=== PATIENT | male | born 1950 | race Caucasian/White ===

== ENCOUNTER 2017-06-08 06:07 | Inpatient (IN) | payer MEDICARE, BC ==
[~2017-06-08 06:07] MED LIST: Lactated Ringers 1,000 ML IV SCH; Lidocaine 1%/Sod Bicarbonate in NS 8.4% 1 ML Syringe IV PRN; Sodium Chloride 0.9% 10 ML Syringe FLUSH PRN
[2017-06-08] MEDS ORDERED: ceFAZolin 1 GM Vial ONE ×3 (06:10→07:22)
[2017-06-08] MEDS ORDERED: Iodine/Sodium Iodide 2% Tincture 30 ML Bottle ONE (06:11)
[2017-06-08] MEDS ORDERED: Ondansetron 4 MG/2 ML SDV IVPUSH PRN (06:41)
[2017-06-08] MEDS ORDERED: Naloxone 0.4 MG/ML SDV IVPUSH PRN (06:41)
[2017-06-08] MEDS ORDERED: Sennosides 8.6 MG Tab PO PRN (06:41)
[2017-06-08] MEDS ORDERED: Morphine 2 MG/ML Syringe IVPUSH PRN (06:41)
[2017-06-08] MEDS ORDERED: Bisacodyl 5 MG Tab PO PRN (06:41)
[2017-06-08] MEDS ORDERED: diphenhydrAMINE 50 MG/ML SDV IVPUSH PRN ×2 (06:41→09:28)
[2017-06-08] MEDS ORDERED: Magnesium Hydroxide 400 MG/5 ML Susp 30 ML Cup PO PRN (06:41)
[2017-06-08] MEDS ORDERED: ceFAZolin 2 GM in Premix Bag 1 BAG IV SCH (06:45)
[2017-06-08] MEDS ORDERED: Cyclobenzaprine 10 MG Tab PO PRN (06:49)
--- NOTE | 2017-06-08 06:54 | PCM.PREANE ---
Preanesthetic Assessment - Anesthesia/Transfusion/Family Hx Anesthesia History: Prior Anesthesia Without Reaction Family History of Anesthesia Reaction: No Transfusion History: No Prior Transfusion(s) - Review of Systems General: No Symptoms Pulmonary: No Symptoms Cardiovascular: No Symptoms Gastrointestinal: No Symptoms Neurological: Numbness (right hand) Other: Reports: None - Physical Assessment NPO Status Date: 06/07/17 NPO Status Time: 00:00 Pulse: 65 O2 Sat by Pulse Oximetry: 95 Respiratory Rate: 16 Blood Pressure: 149/102 Temperature: 36.6 C Height: 1.88 m Weight: 120.656 kg ASA Class: 3 Mental Status: Alert & Oriented x3 Airway Class: Mallampati = 1 Dentition: Reports: Normal Dentition, [place](s), Missing Tooth/Teeth Thyro-Mental Finger Breadths: 3 Mouth Opening Finger Breadths: 3 ROM/Head Extension: Full Lungs: Clear to Auscultation, Normal Respiratory Effort Cardiovascular: Regular Rhythm, Irregular Rhythm - Lab Values: on chart - Imaging/EKG Impressions: on chart - Allergies Allergies/Adverse Reactions: Allergies Allergy/AdvReac Type Severity Reaction Status Date / Time No Known Allergies Allergy Verified 06/07/17 13:35 - Blood Blood Available: Yes Product(s) Available: PRBC - Anesthesia Plan Pre-Op Medication Ordered: Beta Isaac Beta Isaac: Metoprolol Med Last Dose Date: 06/08/17 Med Last Dose Time: 03:30 - Acknowledgements Anesthesia Type Planned: Spinal Pt an Appropriate Candidate for the Planned Anesthesia: Yes Alternatives and Risks of Anesthesia Discussed w Pt/Guardian: Yes Pt/Guardian Understands and Agrees with Anesthesia Plan: Yes PreAnesthesia Questionnaire HEENT History: Reports: Hard of Hearing, Impaired Vision Cardiovascular History: Reports: Afib, CAD, High Cholesterol, Other (See Below) Other Cardiovascular History: heart catheterization, abnormality of thoracic aorta Respiratory History: Reports: None Gastrointestinal History: Reports: GERD Genitourinary History: Reports: None OFFICE BOOKKEEPER History: Reports: None Musculoskeletal History: Reports: Osteoarthritis, Other (See Below) Other Musculoskeletal History: hand weakness Neurological History: Reports: None Psychiatric History: Reports: None Endocrine/Metabolic History: Reports: None Hematologic History: Reports: None Immunologic History: Reports: None Oncologic (Cancer) History: Reports: None Dermatologic History: Reports: Other (See Below) Other Dermatologic History: foreign body to left hand, actinic keratosis - Past Surgical History Head Surgeries/Procedures: Reports: None HEENT Surgical History: Reports: None Cardiovascular Surgical History: Reports: None Respiratory Surgical History: Reports: None GI Surgical History: Reports: None Female Surgical History: Reports: None Male Surgical History: Reports: None Endocrine Surgical History: Reports: None Neurological Surgical History: Reports: None Oncologic Surgical History: Reports: None - SUBSTANCE USE Smoking Status *Q: Never Smoker Tobacco Use Within Last Twelve Months: No Second Hand Smoke Exposure: No Days Per Week of Alcohol Use: 0 Number of Drinks Per Day: 0 Total Drinks Per Week: 0 Recreational Drug Use History: No - HOME MEDS Home Medications: Home Meds Fish Oil/[place]-3 Fatty Acids [Fish Oil 1,000 MG] 1,000 mg PO DAILY 06/07/17 [ History] Ibuprofen 200 - 600 mg PO Q6H PRN 06/07/17 [History] Lisinopril/Hydrochlorothiazide [Lisinopril-Hctz 20-25 mg Tab] 1 tab PO DAILY [History] Metoprolol Succinate [Toprol XL] 50 mg PO BID 06/07/17 [History] Potassium Chloride 10 meq PO DAILY 06/07/17 [History] Rivaroxaban [Xarelto] 20 mg PO DAILY 06/07/17 [History] Rosuvastatin [Crestor] 5 mg PO DAILY 06/07/17 [History] Ubidecarenone [Coq-10] 100 mg PO DAILY 06/07/17 [History] - CURRENT (IN HOUSE) MEDS Current Meds: Current Medications Lactated Ringer's (Ringers, Lactated) 1,000 mls @ 125 mls/hr IV ASDIRECTED [facility]ENDA Lidocaine/Sodium Bicarbonate (Buffered Lidocaine 1% In Ns 8.4%) 0.25 ml IV ONETIME PRN PRN Reason: Prior to IV Start Sodium Chloride (Saline Flush) 10 ml FLUSH ASDIRECTED PRN PRN Reason: Keep Vein Open Discontinued Medications Bupivacaine HCl (Marcaine 0.25%) Confirm Administered Dose 30 ml .ROUTE .STK- MED ONE Stop: 06/08/17 06:12 Cefazolin Sodium (Ancef) Confirm Administered Dose 2 gm .ROUTE .STK-MED ONE Stop: 06/08/17 06:11 Iodine (Iodine 2% Mild Tincture) Confirm Administered Dose 30 ml .ROUTE .STK- MED ONE Stop: 06/08/17 06:12 Tranexamic Acid (Cyklokapron) Confirm Administered Dose 1,000 mg .ROUTE .STK- MED ONE Stop: 06/08/17 06:11 Vancomycin HCl (Vancomycin) Confirm Administered Dose 1 gm .ROUTE .STK-MED ONE Stop: 06/08/17 06:11
[2017-06-08] MEDS ORDERED: Ondansetron 4 MG/2 ML SDV ONE (07:21)
[2017-06-08] MEDS ORDERED: fentaNYL 100 MCG/2 ML SDV ONE (07:21)
[2017-06-08] MEDS ORDERED: Propofol 200 MG/20 ML SDV ONE ×4 (07:21→09:21)
[2017-06-08] MEDS ORDERED: Midazolam 1 MG/ML 2 ML SDV ONE (07:22)
[2017-06-08] MEDS ORDERED: Lidocaine 1% 4 ML ONE (07:22)
[2017-06-08] MEDS ORDERED: Morphine PF 10 MG/10 ML SDV ONE (07:37)
[2017-06-08] MEDS ORDERED: Labetalol 100 MG/20 ML MDV ONE (07:59)
[2017-06-08] MEDS ORDERED: Phenylephrine/Normal Saline 100 MCG/ML 10 ML Syringe ONE (08:08)
[2017-06-08] MEDS ORDERED: Lactated Ringers 1,000 ML ONE ×2 (08:19→09:22)
[2017-06-08] MEDS: Morphine 8 MG, EPINEPHrine 0.3 MG, Cefuroxime 750 MG, Ketorolac 30 MG, Sodium Chloride ... ONE ×10 (08:46→08:50)
[2017-06-08] MEDS: Bupivacaine 0.25% 30 ML SDV ONE ×2 (08:46→08:51)
[2017-06-08] MEDS: Vancomycin 1 GM SDV ONE ×2 (08:47→08:53)
[2017-06-08] MEDS ORDERED: fentaNYL 100 MCG/2 ML SDV IVPUSH PRN (09:28)
--- NOTE | 2017-06-08 09:29 | PCM.POSTAN ---
POST ANESTHESIA ASSESSMENT - MENTAL STATUS Mental Status: Alert, Oriented - VITAL SIGNS Pulse Rate: 66 SaO2: 91 Resp Rate: 11 Blood Pressure: 93/62 Temperature: 36.4 C - RESPIRATORY Respiratory Status: Respiratory Rate WNL, Airway Patent, O2 Saturation Stable, Supplemental Oxygen - CARDIOVASCULAR CV Status: Pulse Rate WNL - GASTROINTESTINAL GI Status: No Symptoms - PAIN Pain Score: 0 - POST OP HYDRATION Hydration Status: Adequate & Stable - OBSERVATIONS Free Text/Narrative:: no anesthetic complications noted
--- NOTE | 2017-06-08 13:22 | PCM.CONS ---
H&P History of Present Illness - General Date of Service: 06/08/17 Admit Problem/Dx: Admission Diagnosis/Problem Admission Diagnosis/Problem Osteoarthritis of hip Harry is a 66yo male s/p Lt JOANNE with Alexander Velez this morning. He is doing well thus far, no nausea. [place] is draining well. Pain is under control at this time , he did have a spinal. Preop H&P reviewed and was done by PCP, Dr Del Real in [place]. Preop hgb was 14.5 VSS. PMH is significant for afib, on xarelto, CAD, HTN, HLD, GERD and OA. Patient is Full Code status Source of Information: Patient, Old Records, Other (anesthesia notes) History Limitations: Reports: No Limitations Left Hip Pain Score (Numeric/FACES): 0 - Related Data Allergies/Adverse Reactions: Allergies Allergy/AdvReac Type Severity Reaction Status Date / Time No Known Allergies Allergy Verified 06/07/17 13:35 Home Medications: Home Meds Fish Oil/[place]-3 Fatty Acids [Fish Oil 1,000 MG] 1,000 mg PO DAILY 06/07/17 [ History] Ibuprofen 200 - 600 mg PO Q6H PRN 06/07/17 [History] Lisinopril/Hydrochlorothiazide [Lisinopril-Hctz 20-25 mg Tab] 1 tab PO DAILY [History] Metoprolol Succinate [Toprol XL] 50 mg PO BID 06/07/17 [History] Potassium Chloride 10 meq PO DAILY 06/07/17 [History] Rivaroxaban [Xarelto] 20 mg PO DAILY 06/07/17 [History] Rosuvastatin [Crestor] 5 mg PO DAILY 06/07/17 [History] Ubidecarenone [Coq-10] 100 mg PO DAILY 06/07/17 [History] Past Medical History HEENT History: Reports: Hard of Hearing, Impaired Vision Cardiovascular History: Reports: Afib, CAD, High Cholesterol, Other (See Below) Other Cardiovascular History: heart catheterization, abnormality of thoracic aorta Respiratory History: Reports: None Gastrointestinal History: Reports: None Genitourinary History: Reports: None DIRECTOR ADVANCED History: Reports: None Musculoskeletal History: Reports: Osteoarthritis, Other (See Below) Other Musculoskeletal History: hand weakness Neurological History: Reports: None Psychiatric History: Reports: None Endocrine/Metabolic History: Reports: None Hematologic History: Reports: None Immunologic History: Reports: None Oncologic (Cancer) History: Reports: None Dermatologic History: Reports: Other (See Below) Other Dermatologic History: foreign body to left hand, actinic keratosis - Infectious Disease History Infectious Disease History: Reports: Chicken Pox, Measles, Other (See Below) Other Infectious Disease History: as a child - Past Surgical History Head Surgeries/Procedures: Reports: None HEENT Surgical History: Reports: None Cardiovascular Surgical History: Reports: None Respiratory Surgical History: Reports: None GI Surgical History: Reports: None Male Surgical History: Reports: None Endocrine Surgical History: Reports: None Neurological Surgical History: Reports: None Musculoskeletal Surgical History: Reports: None Oncologic Surgical History: Reports: None Dermatological Surgical History: Reports: None Social & Family History - Family History Family Medical History: Noncontributory Other Dermatologic Family History: pt declines to answer the family hx - Tobacco Use Smoking Status *Q: Never Smoker Second Hand Smoke Exposure: No - Caffeine Use Caffeine Use: Reports: Soda - Alcohol Use Days Per Week of Alcohol Use: 0 Number of Drinks Per Day: 0 Total Drinks Per Week: 0 - Recreational Drug Use Recreational Drug Use: No H&P Review of Systems - Review of Systems: Review Of Systems: See Below General: Reports: No Symptoms. Denies: Fever HEENT: Reports: No Symptoms Pulmonary: Reports: No Symptoms. Denies: Shortness of Breath, Cough Cardiovascular: Reports: No Symptoms. Denies: Chest Pain, Palpitations Gastrointestinal: Reports: No Symptoms. Denies: Abdominal Pain, Nausea Genitourinary: Reports: No Symptoms, Other ([place]) Musculoskeletal: Reports: Leg Pain (lt knee/leg) Skin: Reports: No Symptoms Psychiatric: Reports: No Symptoms Neurological: Reports: No Symptoms Exam - Exam Exam: See Below - Vital Signs Vital Signs: Last Vital Signs Temp 97.3 F 06/08/17 12:30 Pulse 88 06/08/17 12:30 Resp 16 06/08/17 12:30 BP 118/81 06/08/17 12:30 Pulse Ox 96 06/08/17 12:30 Weight: 270 lb - Exam Quality Assessment: Supplemental Oxygen (1L/NC), Urinary Catheter, DVT Prophylaxis General: Alert, Oriented, Cooperative HEENT: Conjunctiva Clear, EOMI, Hearing Intact, Mucosa Moist & [place], Pupils Equal Neck: Supple Lungs: Clear to Auscultation, Normal Respiratory Effort Cardiovascular: Irregular Rhythm GI/Abdominal Exam: Normal Bowel Sounds, Soft, Non-Tender (Male) Exam: Deferred Rectal (Males) Exam: Deferred Extremities: Other (edith hose to rt LE, dressing to lt hip CDI, hip is soft; SCD' s bilat. CMS is + and = bilat to LE.) Peripheral Pulses: 2+: Dorsalis Pedis (L), Dorsalis Pedis (R) Neurological: Cranial Nerves Intact Neuro Extensive - Mental Status: Alert, Oriented x3, Normal Mood/Affect, Normal Cognition, Memory Intact Psychiatric: Alert, Normal Affect, Normal Mood - Patient Data Lab Results Last 24 hrs: Laboratory Results - last 24 hr 06/08/17 06/08/17 Range/Units 06:30 06:57 PT 10.9 (8.0-13.0) SECONDS INR 1.00 APTT 27 (22-36) SECONDS Blood Type A POSITIVE Gel Antibody Screen Negative Consult PN Assessment/Plan POD#: 0 (1) S/P total hip arthroplasty SNOMED Code(s): 153838395266 Code(s): Z96.649 - PRESENCE OF UNSPECIFIED ARTIFICIAL HIP JOINT Priority: High Current Visit: Yes Qualifiers: Laterality: left Qualified Code(s): Z96.642 - Presence of left artificial hip joint (2) Osteoarthritis SNOMED Code(s): 336579142 Code(s): M19.90 - UNSPECIFIED OSTEOARTHRITIS, UNSPECIFIED SITE Priority: High Current Visit: Yes Qualifiers: Osteoarthritis location: hip Osteoarthritis type: primary Laterality: left Qualified Code(s): M16.12 - Unilateral primary osteoarthritis, left hip (3) Afib SNOMED Code(s): 93155832 Code(s): I48.91 - UNSPECIFIED ATRIAL FIBRILLATION Priority: Medium Current Visit: Yes Qualifiers: Atrial fibrillation type: chronic Qualified Code(s): I48.2 - Chronic atrial fibrillation (4) HTN (hypertension) SNOMED Code(s): 65986033 Code(s): I10 - ESSENTIAL (PRIMARY) HYPERTENSION Priority: Medium Current Visit: Yes Qualifiers: Hypertension type: essential hypertension Qualified Code(s): I10 - Essential (primary) hypertension (5) HLD (hyperlipidemia) SNOMED Code(s): 40179959 Code(s): E78.5 - HYPERLIPIDEMIA, UNSPECIFIED Priority: Medium Current Visit: No Qualifiers: Hyperlipidemia type: unspecified Qualified Code(s): E78.5 - Hyperlipidemia , unspecified (6) GERD (gastroesophageal reflux disease) SNOMED Code(s): 794766722 Code(s): K21.9 - GASTRO-ESOPHAGEAL REFLUX DISEASE WITHOUT ESOPHAGITIS Priority: Medium Current Visit: Yes Qualifiers: Esophagitis presence: esophagitis presence not specified Qualified Code(s) : K21.9 - Gastro-esophageal reflux disease without esophagitis (7) CAD (coronary artery disease) SNOMED Code(s): 17248633 Code(s): I25.10 - ATHSCL HEART DISEASE OF [place] CORONARY ARTERY W/O ANG PCTRS Priority: Medium Current Visit: No Qualifiers: Coronary Disease-Associated Artery/Lesion type: unspecified vessel or lesion type [place] vs. transplanted heart: [place] heart Associated angina: without angina Qualified Code(s): I25.10 - Atherosclerotic heart disease of [place] coronary artery without angina pectoris Problem List Initiated/Reviewed/Updated: Yes Plan: I/P: S/P Lt JOANNE with Dr. Velez, POD #0 -Pain management and DVT prophylax per Ortho/Primary team -PT/OT -RT/IS -Preop hgb 14.5, follow am labs -VSS- on 1L O2/NC now, maintain sats >90%, wean when able Afib- chronic -Restart xarelto tomorrow -Telemetry HTN- cont home meds -Daily labs/BMP Chronic: HLD- cont home meds CAD GERD-GI prophylax OA Other: GI prophylax as above CM/SW- assist with DC planning, plans for DC home with and daughter tomorrow if all goes well. Patient is Full Code status PCP is Dr. Del Real in [place] Thank you for allowing us to participate in this patient's care. Please do not hesitate to contact us if questions/concerns. Requesting Provider: daisy Date Consult Requested: 06/08/17 Reason for Consult: Postoperative medical management Patient History Reviewed: Yes Admission H&P Reviewed: Yes Notified Requestor: Yes Time Spent (in minutes): 35
--- NOTE | 2017-06-08 14:17 | CR ---
Pelvis and left hip: AP view of the pelvis was obtained as well as AP and lateral views of the left hip. Comparison: No previous study. Disc space narrowing and endplate osteophytes partially seen within the lower lumbar spine. Left hip prosthesis is seen which appears to be recently placed. Underlying bony structures are intact. Impression: 1. Satisfactory postoperative radiographic appearance of recently placed left hip prosthesis. 2. Degenerative change is partially seen within the lower lumbar spine. Diagnostic code #2
[2017-06-08] MEDS: ceFAZolin 2 GM in Premix Bag 1 BAG IV SCH ×2 (14:53→23:39)
[2017-06-08] MEDS: ceFAZolin 1 GM in Premix Bag 1 BAG IV SCH ×2 (14:54→23:41)
[2017-06-08] MEDS: Docusate Sodium 100 MG Cap PO SCH (21:03)
[2017-06-08] MEDS: Metoprolol Succinate 50 MG Tab.ER PO SCH (21:04)
[2017-06-08] MEDS: Famotidine 20 MG Tab PO SCH (21:04)
[2017-06-09] MEDS: Acetaminophen/oxyCODONE 325-5 MG Tab PO PRN ×4 (02:16→16:56)
[2017-06-09] MEDS: ceFAZolin 1 GM in Premix Bag 1 BAG IV SCH (06:31)
[2017-06-09] MEDS: ceFAZolin 2 GM in Premix Bag 1 BAG IV SCH (06:31)
--- NOTE | 2017-06-09 07:01 | PCM.PN ---
- General Info Date of Service: 06/09/17 Admission Dx/Problem (Free Text): Admission Diagnosis/Problem Admission Diagnosis/Problem Osteoarthritis of hip Subjective Update: Follow Up Functional Status: Reports: Pain Controlled, Tolerating Diet, Ambulating, Urinating. Denies: New Symptoms - Review of Systems General: Denies: Fever, Weakness, Fatigue, Malaise, Chills HEENT: Reports: No Symptoms Pulmonary: Denies: Shortness of Breath Cardiovascular: Denies: Chest Pain Gastrointestinal: Denies: Abdominal Pain, Nausea, Vomiting Genitourinary: Reports: No Symptoms Musculoskeletal: Reports: No Symptoms Skin: Denies: Cyanosis Neurological: Reports: Gait Disturbance. Denies: Confusion, Difficulty Walking , Weakness Psychiatric: Denies: Depression, Mood Lability, Agitation, Hallucinations, Suicidal Ideation Systems Review Comment:: No overnight or acute issues. He is doing relatively. His pain is controlled. He has no complaints. - Patient Data Vitals - Most Recent: Last Vital Signs Temp 36.7 C 06/09/17 02:36 Pulse 76 06/09/17 02:36 Resp 17 06/09/17 02:36 BP 117/77 06/09/17 02:36 Pulse Ox 98 06/09/17 02:36 Weight - Most Recent: 80.195 kg I&O - Last 24 Hours: Intake & Output 06/08/17 06/09/17 06/09/17 22:59 06:59 14:59 Intake Total 1800 650 Output Total 150 300 Balance 1650 350 Lab Results Last 24 Hours: Laboratory Results - last 24 hr 06/08/17 06/08/17 06/09/17 Range/Units 06:30 06:57 06:08 WBC 6.01 (4.23-9.07) K/mm3 RBC 4.01 L (4.63-6.08) M/mm3 Hgb 12.1 L (13.7-17.5) gm/L Hct 36.8 L (40.1-51.0) % MCV 91.8 (79.0-92.2) fl MCH 30.2 (25.7-32.2) pg MCHC 32.9 (32.2-35.5) g/dl RDW Std Deviation 48.3 H (35.1-43.9) fL Plt Count 122 L (163-337) K/mm3 MPV 9.6 (9.4-12.3) fl PT 10.9 (8.0-13.0) SECONDS INR 1.00 APTT 27 (22-36) SECONDS Blood Type A POSITIVE Gel Antibody Screen Negative Med Orders - Current: Current Medications Bisacodyl (Dulcolax) 5 mg PO DAILY PRN PRN Reason: Constipation Cyclobenzaprine HCl (Flexeril) 10 mg PO TID PRN PRN Reason: Spasms Docusate Sodium (Colace) 100 mg PO BID [facility] Last Admin: 06/08/17 21:03 Dose: 100 mg Famotidine (Pepcid) 20 mg PO BID [facility] Last Admin: 06/08/17 21:04 Dose: 20 mg Hydrochlorothiazide (Hydrochlorothiazide) 25 mg PO DAILY [facility] Cefazolin Sodium/Dextrose 2 gm (/ Premix) 50 mls @ 100 mls/hr IV Q8H [facility] Stop: 06/09/17 07:59 Last Admin: 06/09/17 06:31 Dose: 100 mls/hr Cefazolin Sodium/Dextrose 1 gm (/ Premix) 50 mls @ 100 mls/hr IV Q8H [facility] Stop: 06/09/17 07:59 Last Admin: 06/09/17 06:31 Dose: 100 mls/hr Influenza Virus Vaccine (Fluzone High-Dose ) 1 mcg IM ONETIME ONE Stop: 06/09/17 11:39 Lisinopril (Prinivil) 20 mg PO DAILY [facility] Magnesium Hydroxide (Milk Of Magnesia) 30 ml PO BID PRN PRN Reason: Constipation Metoprolol Succinate (Toprol Xl) 50 mg PO BID [facility] Last Admin: 06/08/17 21:04 Dose: 50 mg Morphine Sulfate (Morphine) 2 mg IVPUSH Q2H PRN PRN Reason: Breakthrough Pain Naloxone HCl (Narcan) 0.1 mg IVPUSH Q5M PRN PRN Reason: Oversedation Ondansetron HCl (Zofran) 4 mg IVPUSH Q6H PRN PRN Reason: Nausea/Vomiting Oxycodone/Acetaminophen (Percocet 325-5 Mg) 1 - 2 tab PO Q4H PRN PRN Reason: Pain Last Admin: 06/09/17 02:16 Dose: 2 tab Ubidecarenone 100mg 1 each PO DAILY [facility] Potassium Chloride (Klor-Con 10) 10 meq PO DAILY [facility] Rivaroxaban (Xarelto) 20 mg PO DAILY [facility] Rosuvastatin Calcium (Crestor) 5 mg PO DAILY [facility] Senna (Senna) 8.6 mg PO BID PRN PRN Reason: Constipation Sodium Chloride (Saline Flush) 10 ml FLUSH ASDIRECTED PRN PRN Reason: Keep Vein Open Discontinued Medications Bupivacaine HCl (Marcaine 0.25%) Confirm Administered Dose 30 ml .ROUTE .STK- MED ONE Stop: 06/08/17 06:12 Last Admin: 06/08/17 08:51 Dose: 30 ml Cefazolin Sodium (Ancef) Confirm Administered Dose 2 gm .ROUTE .STK-MED ONE Stop: 06/08/17 06:11 Last Admin: 06/08/17 08:45 Dose: 2 gm Cefazolin Sodium (Ancef) Confirm Administered Dose 2 gm .ROUTE .STK-MED ONE Stop: 06/08/17 07:23 Cefazolin Sodium (Ancef) Confirm Administered Dose 1 gm .ROUTE .STK-MED ONE Stop: 06/08/17 07:23 Morphine Sulfate 8 mg/Epinephrine HCl 0.3 mg/Cefuroxime Sodium 750 mg/Ketorolac Tromethamine 30 mg/Sodium Chloride 27.9 ml 0 mg .XX ONETIME ONE Stop: 06/08/17 07:46 Last Admin: 06/08/17 08:50 Dose: 788.3 mg Diphenhydramine HCl (Benadryl) 25 mg IVPUSH Q4H PRN PRN Reason: Nausea Diphenhydramine HCl (Benadryl) 25 mg IVPUSH Q6H PRN PRN Reason: Itching Stop: 06/08/17 18:00 Fentanyl (Sublimaze) Confirm Administered Dose 100 mcg .ROUTE .STK-MED ONE Stop: 06/08/17 07:22 Fentanyl (Sublimaze) 50 mcg IVPUSH Q5M PRN PRN Reason: PAIN Stop: 06/08/17 18:00 Fish Oil (Fish Oil) 1 gm PO DAILY [facility] Lactated Ringer's (Ringers, Lactated) 1,000 mls @ 125 mls/hr IV ASDIRECTED [facility] Cefazolin Sodium/Dextrose 2 gm (/ Premix) 50 mls @ 100 mls/hr IV Q8H [facility] Stop: 06/08/17 23:14 Lidocaine HCl (Xylocaine-Mpf 1%) Confirm Administered Dose 4 mls @ as directed .ROUTE .STK-MED ONE Stop: 06/08/17 07:23 Lactated Ringer's (Ringers, Lactated) Confirm Administered Dose 1,000 mls @ as directed .ROUTE .STK-MED ONE Stop: 06/08/17 08:20 Lactated Ringer's (Ringers, Lactated) Confirm Administered Dose 1,000 mls @ as directed .ROUTE .STK-MED ONE Stop: 06/08/17 09:23 Iodine (Iodine 2% Mild Tincture) Confirm Administered Dose 30 ml .ROUTE .STK- MED ONE Stop: 06/08/17 06:12 Last Admin: 06/08/17 08:44 Dose: 18 ml Labetalol HCl (Normodyne) Confirm Administered Dose 100 mg .ROUTE .STK-MED ONE Stop: 06/08/17 08:00 Lidocaine/Sodium Bicarbonate (Buffered Lidocaine 1% In Ns 8.4%) 0.25 ml IV ONETIME PRN PRN Reason: Prior to IV Start Midazolam HCl (Versed 1 Mg/Ml) Confirm Administered Dose 2 mg .ROUTE .STK-MED ONE Stop: 06/08/17 07:23 Morphine Sulfate (Duramorph Pf) Confirm Administered Dose 10 mg .ROUTE .STK-MED ONE Stop: 06/08/17 07:38 Non-Formulary Medication (Lisinopril/Hydrochlorothiazide [Lisinopril-Hctz 20-25 Mg Tab]) 1 tab PO DAILY [facility] Non-Formulary Medication (Rivaroxaban [Xarelto]) 20 mg PO DAILY [facility] Ondansetron HCl (Zofran) Confirm Administered Dose 4 mg .ROUTE .STK-MED ONE Stop: 06/08/17 07:22 Phenylephrine HCl (Phenylephrine In Ns 100 Mcg/Ml) Confirm Administered Dose 1 mg .ROUTE .STK-MED ONE Stop: 06/08/17 08:09 Propofol (Diprivan 20 Ml) Confirm Administered Dose 200 mg .ROUTE .STK-MED ONE Stop: 06/08/17 07:22 Propofol (Diprivan 20 Ml) Confirm Administered Dose 200 mg .ROUTE .STK-MED ONE Stop: 06/08/17 08:14 Propofol (Diprivan 20 Ml) Confirm Administered Dose 200 mg .ROUTE .STK-MED ONE Stop: 06/08/17 08:49 Propofol (Diprivan 20 Ml) Confirm Administered Dose 200 mg .ROUTE .STK-MED ONE Stop: 06/08/17 09:22 Tranexamic Acid (Cyklokapron) Confirm Administered Dose 1,000 mg .ROUTE .STK- MED ONE Stop: 06/08/17 06:11 Last Admin: 06/08/17 08:53 Dose: 1,000 mg Vancomycin HCl (Vancomycin) Confirm Administered Dose 1 gm .ROUTE .STK-MED ONE Stop: 06/08/17 06:11 Last Admin: 06/08/17 08:53 Dose: 1 gm - Exam General: Alert, Oriented, Cooperative, No Acute Distress HEENT: Pupils Equal, Pupils Reactive, EOMI, Mucous Membr. Moist/[place] Neck: Supple, Trachea Midline, No JVD Lungs: Clear to Auscultation, Normal Respiratory Effort Cardiovascular: Regular Rate, Regular Rhythm GI/Abdominal Exam: Normal Bowel Sounds, Soft, Non-Tender, No Organomegaly, No Distention, No Abnormal Bruit, No Mass, Pelvis Stable, Other (Obese) (Male) Exam: Deferred Back Exam: Normal Inspection, Decreased Range of Motion Extremities: Normal Inspection, Normal Range of Motion, Non-Tender, No Pedal Edema, Normal Capillary Refill Peripheral Pulses: 2+: Dorsalis Pedis (L), Dorsalis Pedis (R) Skin: Warm, Dry, Intact Neurological: No New Focal Deficit Psy/Mental Status: Alert, Normal Affect, Normal Mood - Problem List Review Problem List Initiated/Reviewed/Updated: Yes - Plan Plan:: Assessment/Plan: Acute: S/P Left JOANNE with Dr. Velez, POD #1 - Pain management and DVT prophylaxis per Ortho/Primary team - Continue PT/OT/RT and IS as directed - VSS Post Operative Care - Remains hemodynamically stable Chronic: A-fib, HR controlled, on Xarelto HTN- Stable HLD- Stable CAD GERD-GI prophylax OA Other: GI prophylax as above CM/SW- assist with DC planning, plans for DC home with and daughter tomorrow if all goes well. PCP is Dr. Del Real in [place] From the Hospitalist standpoint, patient is doing relatively well. We have no further recommendations but to continue current treatment. We are signing off his care. Please feel free to re-consult us for any questions or concerns. Again , thank you for allowing us to participate in the management of this patient.
[2017-06-09] MEDS: Metoprolol Succinate 50 MG Tab.ER PO SCH (08:20)
[2017-06-09] MEDS: Docusate Sodium 100 MG Cap PO SCH (08:20)
[2017-06-09] MEDS: Famotidine 20 MG Tab PO SCH (08:21)
[2017-06-09] MEDS ORDERED: Lisinopril 20 MG Tab PO SCH (09:00)
[2017-06-09] MEDS ORDERED: Potassium Chloride 10 MEQ Tab.ER PO SCH (09:00)
[2017-06-09] MEDS ORDERED: Hydrochlorothiazide 25 MG Tab PO SCH (09:00)
[2017-06-09] MEDS ORDERED: Rosuvastatin 10 MG Tab PO SCH (09:00)
[2017-06-09] MEDS ORDERED: Rivaroxaban 10 MG Tab PO SCH (09:00)
[2017-06-09] MEDS ORDERED: UBIDECARENONE 100 MG PO SCH (09:00)
[2017-06-09] MEDS ORDERED: Non-Formulary Medication 1 Each (Rivaroxaban [Xarelto] 20 MG) PO SCH (09:00)
[2017-06-09] MEDS ORDERED: Fish Oil/Omega-3 Fatty Acids 1 Gm Cap PO SCH (09:00)
[2017-06-09] MEDS ORDERED: FLU Vacc TS 2017-18 (65yr UP)/PF 180 MCG/0.5 ML Syringe IM ONE ×2 (11:38→16:28)
--- NOTE | 2017-06-09 13:28 | PCM.SURGPN ---
- General Info Date of Service: 06/09/17 POD#: 1 Functional Status: Reports: Pain Controlled, Tolerating Diet, Ambulating, Urinating, Incentive Spirometry, Other (The pt feels prepared for discharge to home.) - Patient Data Vitals - Most Recent: Last Vital Signs Temp 98.4 F 06/09/17 11:44 Pulse 88 06/09/17 11:44 Resp 19 06/09/17 11:44 BP 102/70 06/09/17 11:44 Pulse Ox 95 06/09/17 11:44 Weight - Most Recent: 176 lb 12.8 oz I&O - Last 24 Hours: Intake & Output 06/08/17 06/09/17 06/09/17 22:59 06:59 14:59 Intake Total 1800 650 Output Total 150 300 Balance 1650 350 Lab Results Last 24 Hrs: Laboratory Results - last 24 hr 06/09/17 06/09/17 Range/Units 06:08 06:08 WBC 6.01 (4.23-9.07) K/mm3 RBC 4.01 L (4.63-6.08) M/mm3 Hgb 12.1 L (13.7-17.5) gm/L Hct 36.8 L (40.1-51.0) % MCV 91.8 (79.0-92.2) fl MCH 30.2 (25.7-32.2) pg MCHC 32.9 (32.2-35.5) g/dl RDW Std Deviation 48.3 H (35.1-43.9) fL Plt Count 122 L (163-337) K/mm3 MPV 9.6 (9.4-12.3) fl Sodium 139 (136-145) mEq/L Potassium 4.6 (3.5-5.1) mEq/L Chloride 105 (98-107) mEq/L Carbon Dioxide 28 (21-32) mEq/L Anion Gap 10.6 (5-15) BUN 26 H (7-18) mg/dL Creatinine 1.2 (0.7-1.3) mg/dL Est Cr Clr Drug Dosing 67.76 mL/min Estimated GFR (MDRD) > 60 (>60) mL/min BUN/Creatinine Ratio 21.7 H (14-18) Glucose 115 (80-115) mg/dL Calcium 8.2 L (8.5-10.1) mg/dL Total Bilirubin 0.8 (0.2-1.0) mg/dL AST 17 (15-37) U/L ALT 20 (16-63) U/L Alkaline Phosphatase 75 (46-116) U/L Total Protein 5.9 L (6.4-8.2) g/dl Albumin 2.8 L (3.4-5.0) g/dl Globulin 3.1 gm/dL Albumin/Globulin Ratio 0.9 L (1-2) Med Orders - Current: Current Medications Bisacodyl (Dulcolax) 5 mg PO DAILY PRN PRN Reason: Constipation Cyclobenzaprine HCl (Flexeril) 10 mg PO TID PRN PRN Reason: Spasms Last Admin: 06/09/17 11:07 Dose: 10 mg Docusate Sodium (Colace) 100 mg PO BID [facility] Last Admin: 06/09/17 08:20 Dose: 100 mg Famotidine (Pepcid) 20 mg PO BID [facility] Last Admin: 06/09/17 08:21 Dose: 20 mg Hydrochlorothiazide (Hydrochlorothiazide) 25 mg PO DAILY [facility] Last Admin: 06/09/17 08:21 Dose: 25 mg Lisinopril (Prinivil) 20 mg PO DAILY [facility] Last Admin: 06/09/17 08:18 Dose: 20 mg Magnesium Hydroxide (Milk Of Magnesia) 30 ml PO BID PRN PRN Reason: Constipation Metoprolol Succinate (Toprol Xl) 50 mg PO BID [facility] Last Admin: 06/09/17 08:20 Dose: 50 mg Morphine Sulfate (Morphine) 2 mg IVPUSH Q2H PRN PRN Reason: Breakthrough Pain Naloxone HCl (Narcan) 0.1 mg IVPUSH Q5M PRN PRN Reason: Oversedation Ondansetron HCl (Zofran) 4 mg IVPUSH Q6H PRN PRN Reason: Nausea/Vomiting Oxycodone/Acetaminophen (Percocet 325-5 Mg) 1 - 2 tab PO Q4H PRN PRN Reason: Pain Last Admin: 06/09/17 12:45 Dose: 2 tab Ubidecarenone 100mg 1 each PO DAILY [facility] Last Admin: 06/09/17 08:25 Dose: Not Given Potassium Chloride (Klor-Con 10) 10 meq PO DAILY [facility] Last Admin: 06/09/17 08:18 Dose: 10 meq Rivaroxaban (Xarelto) 20 mg PO DAILY [facility] Last Admin: 06/09/17 08:18 Dose: 20 mg Rosuvastatin Calcium (Crestor) 5 mg PO DAILY [facility] Last Admin: 06/09/17 08:17 Dose: 5 mg Senna (Senna) 8.6 mg PO BID PRN PRN Reason: Constipation Sodium Chloride (Saline Flush) 10 ml FLUSH ASDIRECTED PRN PRN Reason: Keep Vein Open Discontinued Medications Bupivacaine HCl (Marcaine 0.25%) Confirm Administered Dose 30 ml .ROUTE .STK- MED ONE Stop: 06/08/17 06:12 Last Admin: 06/08/17 08:51 Dose: 30 ml Cefazolin Sodium (Ancef) Confirm Administered Dose 2 gm .ROUTE .STK-MED ONE Stop: 06/08/17 06:11 Last Admin: 06/08/17 08:45 Dose: 2 gm Cefazolin Sodium (Ancef) Confirm Administered Dose 2 gm .ROUTE .STK-MED ONE Stop: 06/08/17 07:23 Cefazolin Sodium (Ancef) Confirm Administered Dose 1 gm .ROUTE .STK-MED ONE Stop: 06/08/17 07:23 Morphine Sulfate 8 mg/Epinephrine HCl 0.3 mg/Cefuroxime Sodium 750 mg/Ketorolac Tromethamine 30 mg/Sodium Chloride 27.9 ml 0 mg .XX ONETIME ONE Stop: 06/08/17 07:46 Last Admin: 06/08/17 08:50 Dose: 788.3 mg Diphenhydramine HCl (Benadryl) 25 mg IVPUSH Q4H PRN PRN Reason: Nausea Diphenhydramine HCl (Benadryl) 25 mg IVPUSH Q6H PRN PRN Reason: Itching Stop: 06/08/17 18:00 Fentanyl (Sublimaze) Confirm Administered Dose 100 mcg .ROUTE .STK-MED ONE Stop: 06/08/17 07:22 Fentanyl (Sublimaze) 50 mcg IVPUSH Q5M PRN PRN Reason: PAIN Stop: 06/08/17 18:00 Fish Oil (Fish Oil) 1 gm PO DAILY [facility] Lactated Ringer's (Ringers, Lactated) 1,000 mls @ 125 mls/hr IV ASDIRECTED [facility] Cefazolin Sodium/Dextrose 2 gm (/ Premix) 50 mls @ 100 mls/hr IV Q8H [facility] Stop: 06/08/17 23:14 Lidocaine HCl (Xylocaine-Mpf 1%) Confirm Administered Dose 4 mls @ as directed .ROUTE .STK-MED ONE Stop: 06/08/17 07:23 Lactated Ringer's (Ringers, Lactated) Confirm Administered Dose 1,000 mls @ as directed .ROUTE .STK-MED ONE Stop: 06/08/17 08:20 Cefazolin Sodium/Dextrose 2 gm (/ Premix) 50 mls @ 100 mls/hr IV Q8H [facility] Stop: 06/09/17 07:59 Last Admin: 06/09/17 06:31 Dose: 100 mls/hr Cefazolin Sodium/Dextrose 1 gm (/ Premix) 50 mls @ 100 mls/hr IV Q8H [facility] Stop: 06/09/17 07:59 Last Admin: 06/09/17 06:31 Dose: 100 mls/hr Lactated Ringer's (Ringers, Lactated) Confirm Administered Dose 1,000 mls @ as directed .ROUTE .STK-MED ONE Stop: 06/08/17 09:23 Influenza Virus Vaccine (Fluzone High-Dose ) 1 mcg IM ONETIME ONE Stop: 06/09/17 11:39 Iodine (Iodine 2% Mild Tincture) Confirm Administered Dose 30 ml .ROUTE .STK- MED ONE Stop: 06/08/17 06:12 Last Admin: 06/08/17 08:44 Dose: 18 ml Labetalol HCl (Normodyne) Confirm Administered Dose 100 mg .ROUTE .STK-MED ONE Stop: 06/08/17 08:00 Lidocaine/Sodium Bicarbonate (Buffered Lidocaine 1% In Ns 8.4%) 0.25 ml IV ONETIME PRN PRN Reason: Prior to IV Start Midazolam HCl (Versed 1 Mg/Ml) Confirm Administered Dose 2 mg .ROUTE .STK-MED ONE Stop: 06/08/17 07:23 Morphine Sulfate (Duramorph Pf) Confirm Administered Dose 10 mg .ROUTE .STK-MED ONE Stop: 06/08/17 07:38 Non-Formulary Medication (Lisinopril/Hydrochlorothiazide [Lisinopril-Hctz 20-25 Mg Tab]) 1 tab PO DAILY [facility] Non-Formulary Medication (Rivaroxaban [Xarelto]) 20 mg PO DAILY [facility] Ondansetron HCl (Zofran) Confirm Administered Dose 4 mg .ROUTE .STK-MED ONE Stop: 06/08/17 07:22 Phenylephrine HCl (Phenylephrine In Ns 100 Mcg/Ml) Confirm Administered Dose 1 mg .ROUTE .STK-MED ONE Stop: 06/08/17 08:09 Propofol (Diprivan 20 Ml) Confirm Administered Dose 200 mg .ROUTE .STK-MED ONE Stop: 06/08/17 07:22 Propofol (Diprivan 20 Ml) Confirm Administered Dose 200 mg .ROUTE .STK-MED ONE Stop: 06/08/17 08:14 Propofol (Diprivan 20 Ml) Confirm Administered Dose 200 mg .ROUTE .STK-MED ONE Stop: 06/08/17 08:49 Propofol (Diprivan 20 Ml) Confirm Administered Dose 200 mg .ROUTE .STK-MED ONE Stop: 06/08/17 09:22 Tranexamic Acid (Cyklokapron) Confirm Administered Dose 1,000 mg .ROUTE .STK- MED ONE Stop: 06/08/17 06:11 Last Admin: 06/08/17 08:53 Dose: 1,000 mg Vancomycin HCl (Vancomycin) Confirm Administered Dose 1 gm .ROUTE .STK-MED ONE Stop: 06/08/17 06:11 Last Admin: 06/08/17 08:53 Dose: 1 gm - Exam Wound/Incisions: Dressing Dry and Intact General: Alert, Cooperative, No Acute Distress Lungs: Normal Respiratory Effort Extremities: Other (Left thigh soft, nontender. NVS intact for BLE. Dennys's negative.) - Problem List Review Problem List Initiated/Reviewed/Updated: Yes - My Orders Last 24 Hours: Active Orders 24 hr Category Date Time Status Admission Status [Patient Status] [ADT] Routine ADT 06/08/17 13:29 Active Ready for Discharge [RC] PER UNIT ROUTINE Care 06/09/17 13:26 Ordered Telemetry Monitoring [Cardiac Monitoring] [RC] . Care 06/08/17 15:39 Active DIRECTED Docusate Sodium [Colace] Med 06/08/17 21:00 Active 100 mg PO BID Famotidine [Pepcid] Med 06/08/17 21:00 Active 20 mg PO BID Hydrochlorothiazide Med 06/09/17 09:00 Active 25 mg PO DAILY Lisinopril [Prinivil] Med 06/09/17 09:00 Active 20 mg PO DAILY Metoprolol Succinate [Toprol XL] Med 06/08/17 21:00 Active 50 mg PO BID Patient's Own Medication [Ptom] Med 06/09/17 09:00 Active 1 each PO DAILY Potassium Chloride [Klor-Con 10] Med 06/09/17 09:00 Active 10 meq PO DAILY Rivaroxaban [Xarelto] Med 06/09/17 09:00 Active 20 mg PO DAILY Rosuvastatin [Crestor] Med 06/09/17 09:00 Active 5 mg PO DAILY Medication Orders Bisacodyl (Dulcolax) 5 mg PO DAILY PRN PRN Reason: Constipation Cyclobenzaprine HCl (Flexeril) 10 mg PO TID PRN PRN Reason: Spasms Last Admin: 06/09/17 11:07 Dose: 10 mg Docusate Sodium (Colace) 100 mg PO BID [facility] Last Admin: 06/09/17 08:20 Dose: 100 mg Admin: 06/08/17 21:03 Dose: 100 mg Famotidine (Pepcid) 20 mg PO BID [facility] Last Admin: 06/09/17 08:21 Dose: 20 mg Admin: 06/08/17 21:04 Dose: 20 mg Hydrochlorothiazide (Hydrochlorothiazide) 25 mg PO DAILY [facility] Last Admin: 06/09/17 08:21 Dose: 25 mg Lisinopril (Prinivil) 20 mg PO DAILY [facility] Last Admin: 06/09/17 08:18 Dose: 20 mg Magnesium Hydroxide (Milk Of Magnesia) 30 ml PO BID PRN PRN Reason: Constipation Metoprolol Succinate (Toprol Xl) 50 mg PO BID [facility] Last Admin: 06/09/17 08:20 Dose: 50 mg Admin: 06/08/17 21:04 Dose: 50 mg Morphine Sulfate (Morphine) 2 mg IVPUSH Q2H PRN PRN Reason: Breakthrough Pain Naloxone HCl (Narcan) 0.1 mg IVPUSH Q5M PRN PRN Reason: Oversedation Ondansetron HCl (Zofran) 4 mg IVPUSH Q6H PRN PRN Reason: Nausea/Vomiting Oxycodone/Acetaminophen (Percocet 325-5 Mg) 1 - 2 tab PO Q4H PRN PRN Reason: Pain Last Admin: 06/09/17 12:45 Dose: 2 tab Admin: 06/09/17 07:49 Dose: 2 tab Admin: 06/09/17 02:16 Dose: 2 tab Ubidecarenone 100mg 1 each PO DAILY [facility] Last Admin: 06/09/17 08:25 Dose: Potassium Chloride (Klor-Con 10) 10 meq PO DAILY [facility] Last Admin: 06/09/17 08:18 Dose: 10 meq Rivaroxaban (Xarelto) 20 mg PO DAILY [facility] Last Admin: 06/09/17 08:18 Dose: 20 mg Rosuvastatin Calcium (Crestor) 5 mg PO DAILY [facility] Last Admin: 06/09/17 08:17 Dose: 5 mg Senna (Senna) 8.6 mg PO BID PRN PRN Reason: Constipation Sodium Chloride (Saline Flush) 10 ml FLUSH ASDIRECTED PRN PRN Reason: Keep Vein Open - Assessment Assessment (Free Text/Narrative):: POD#1 - left JOANNE - Plan Plan (Free Text/Narrative):: 1. Xarelto 20mg PO daily as per PCP instruction. Frequent mobility, SCDs. 2. F/U with Dr. Velez in [place] next week. 3. JOANNE precautions. P.T., ex at home. Dr. Velez evaluated the pt today.
--- NOTE | 2017-06-09 13:38 | PCM.DCSUM1 ---
Discharge Summary - Hospital Course Brief History: Harry is a 66 yo male who underwent left JOANNE with Dr. Velez on . The procedure was completed under spinal anesthesia. The pt tolerated the procedure well and was admitted to the Medical-Surgical Unit. Medical management was provided by the Hospitalist service. The pt's Hospital course was uneventful. The pt's Hgb on POD#1 was 12.1. On POD#1, Xarelto 20mg PO daily was initiated for VTE prophylaxis as pt was using this medication daily previously. SCDs and TEDs were also ordered. A Mepilex dressing was placed at the incision site at the time of surgery and remained clean and dry. The pt participated in P.T. and O.T. and progressed well. He followed the JOANNE precautions. The pt was allowed to WBAT and used a FWW for mobility. On POD#1 , the pt was deemed appropriate to discharge to home with his . - Discharge Data Discharge Date: 06/09/17 Discharge Disposition: Home, Self-Care 01 Condition: Good - Patient Summary/Data Consults: Consultations 06/08/17 06:41 Consult to Physician [CONS] Routine OT Evaluation and Treatment [CONS] Routine 06/08/17 06:45 PT Evaluation and Treatment [CONS] Routine - Patient Instructions Diet: Usual Diet as Tolerated Activity: Apply Ice, As Tolerated, Elevate Extremity, Full Weight Bearing Activity, Other: Total hip precautions. Driving: Do Not Drive Showering/Bathing: May Shower Wound/Incision Care: Keep Operative Site/Wound Site Clean and Dry, Do NOT Change Dressing Notify Provider of: Fever, Increased Pain, Swelling and Redness, Drainage, Nausea and/or Vomiting Other/Special Instructions: Please get up and moving around every hour while awake. This helps to prevent blood clots. Please take the Xarelto - blood thinner medication - daily as directed. Please wear the MACARIO hose during the day and you may remove them at night. Please schedule for P.T. Complete the P.T. exercises that were instructed in the Hospital. Follow the total hip arthroplasty precautions. Please use the pain medication and muscle relaxant as needed. The medication may cause drowsiness and/or constipation. You could use a stool softener like docusate sodium or Colace 100mg twice daily and/or a laxative like Miralax daily for constipation. Contact your primary care provider for further instructions if you are constipated. Please schedule an appointment with your primary care provider for 'routine post-op care'. Use the incentive spirometer often. Please place ice to the hip often. Please elevate the limb to decrease swelling. Keep the Mepilex dressing in place until follow-up. Please call [phone] with questions or concerns. - Discharge Plan Prescriptions/Med Rec: Acetaminophen/oxyCODONE [Percocet 325-5 MG] 1 - 2 tab PO Q6H PRN #60 tablet PRN Reason: Pain Cyclobenzaprine [Flexeril] 10 mg PO TID PRN #40 tablet PRN Reason: Spasms Home Medications: Home Meds Lisinopril/Hydrochlorothiazide [Lisinopril-Hctz 20-25 mg Tab] 1 tab PO DAILY [History] Metoprolol Succinate [Toprol XL] 50 mg PO BID 06/07/17 [History] Potassium Chloride 10 meq PO DAILY 06/07/17 [History] Rivaroxaban [Xarelto] 20 mg PO DAILY 06/07/17 [History] Rosuvastatin [Crestor] 5 mg PO DAILY 06/07/17 [History] Ubidecarenone [Coq-10] 100 mg PO DAILY 06/07/17 [History] Acetaminophen/oxyCODONE [Percocet 325-5 MG] 1 - 2 tab PO Q6H PRN #60 tablet [Rx] Bisacodyl [Dulcolax] 5 mg PO DAILY PRN tablet 06/09/17 [Rx] Cyclobenzaprine [Flexeril] 10 mg PO TID PRN #40 tablet 06/09/17 [Rx] Docusate Sodium [Colace] 100 mg PO BID cap 06/09/17 [Rx] Famotidine [Pepcid] 20 mg PO BID tablet 06/09/17 [Rx] Hydrochlorothiazide 25 mg PO DAILY tablet 06/09/17 [Rx] Lisinopril [Prinivil] 20 mg PO DAILY tablet 06/09/17 [Rx] Magnesium Hydroxide [Milk of Magnesia] 30 ml PO BID PRN cup 06/09/17 [Rx] Rivaroxaban [Xarelto] 20 mg PO DAILY tablet 06/09/17 [Rx] Sennosides [Senna] 8.6 mg PO BID PRN tablet 06/09/17 [Rx] Patient Handouts: Rivaroxaban oral tablets, Total Hip Replacement, [id number] , Hip Rehabilitation After Surgery, Total Hip Replacement, Care After, Easy-to- Read Referrals: Luh Richards PA-C [Physician Radio Interference Expert] - (1. Follow-up with in [place] on Wednesday, June 14, 2017 at 2: 00pm. 2. Follow-up with Luh Richards PA-C in [place] on Wednesday, June 21, 2017 at 12:00pm.) Bhargav Del Real MD [Primary Care Provider] - - Patient Data Vitals - Most Recent: Last Vital Signs Temp 98.4 F 06/09/17 11:44 Pulse 88 06/09/17 11:44 Resp 19 06/09/17 11:44 BP 102/70 06/09/17 11:44 Pulse Ox 95 06/09/17 11:44 Weight - Most Recent: 176 lb 12.8 oz I&O - Last 24 hours: Intake & Output 06/08/17 06/09/17 06/09/17 22:59 06:59 14:59 Intake Total 1800 650 Output Total 150 300 Balance 1650 350 Lab Results - Last 24 hrs: Laboratory Results - last 24 hr 06/09/17 06/09/17 Range/Units 06:08 06:08 WBC 6.01 (4.23-9.07) K/mm3 RBC 4.01 L (4.63-6.08) M/mm3 Hgb 12.1 L (13.7-17.5) gm/L Hct 36.8 L (40.1-51.0) % MCV 91.8 (79.0-92.2) fl MCH 30.2 (25.7-32.2) pg MCHC 32.9 (32.2-35.5) g/dl RDW Std Deviation 48.3 H (35.1-43.9) fL Plt Count 122 L (163-337) K/mm3 MPV 9.6 (9.4-12.3) fl Sodium 139 (136-145) mEq/L Potassium 4.6 (3.5-5.1) mEq/L Chloride 105 (98-107) mEq/L Carbon Dioxide 28 (21-32) mEq/L Anion Gap 10.6 (5-15) BUN 26 H (7-18) mg/dL Creatinine 1.2 (0.7-1.3) mg/dL Est Cr Clr Drug Dosing 67.76 mL/min Estimated GFR (MDRD) > 60 (>60) mL/min BUN/Creatinine Ratio 21.7 H (14-18) Glucose 115 (80-115) mg/dL Calcium 8.2 L (8.5-10.1) mg/dL Total Bilirubin 0.8 (0.2-1.0) mg/dL AST 17 (15-37) U/L ALT 20 (16-63) U/L Alkaline Phosphatase 75 (46-116) U/L Total Protein 5.9 L (6.4-8.2) g/dl Albumin 2.8 L (3.4-5.0) g/dl Globulin 3.1 gm/dL Albumin/Globulin Ratio 0.9 L (1-2) Med Orders - Current: Current Medications Bisacodyl (Dulcolax) 5 mg PO DAILY PRN PRN Reason: Constipation Cyclobenzaprine HCl (Flexeril) 10 mg PO TID PRN PRN Reason: Spasms Last Admin: 06/09/17 11:07 Dose: 10 mg Docusate Sodium (Colace) 100 mg PO BID [facility] Last Admin: 06/09/17 08:20 Dose: 100 mg Famotidine (Pepcid) 20 mg PO BID [facility] Last Admin: 06/09/17 08:21 Dose: 20 mg Hydrochlorothiazide (Hydrochlorothiazide) 25 mg PO DAILY [facility] Last Admin: 06/09/17 08:21 Dose: 25 mg Lisinopril (Prinivil) 20 mg PO DAILY [facility] Last Admin: 06/09/17 08:18 Dose: 20 mg Magnesium Hydroxide (Milk Of Magnesia) 30 ml PO BID PRN PRN Reason: Constipation Metoprolol Succinate (Toprol Xl) 50 mg PO BID [facility] Last Admin: 06/09/17 08:20 Dose: 50 mg Morphine Sulfate (Morphine) 2 mg IVPUSH Q2H PRN PRN Reason: Breakthrough Pain Naloxone HCl (Narcan) 0.1 mg IVPUSH Q5M PRN PRN Reason: Oversedation Ondansetron HCl (Zofran) 4 mg IVPUSH Q6H PRN PRN Reason: Nausea/Vomiting Oxycodone/Acetaminophen (Percocet 325-5 Mg) 1 - 2 tab PO Q4H PRN PRN Reason: Pain Last Admin: 06/09/17 12:45 Dose: 2 tab Ubidecarenone 100mg 1 each PO DAILY [facility] Last Admin: 06/09/17 08:25 Dose: Not Given Potassium Chloride (Klor-Con 10) 10 meq PO DAILY [facility] Last Admin: 06/09/17 08:18 Dose: 10 meq Rivaroxaban (Xarelto) 20 mg PO DAILY [facility] Last Admin: 06/09/17 08:18 Dose: 20 mg Rosuvastatin Calcium (Crestor) 5 mg PO DAILY [facility] Last Admin: 06/09/17 08:17 Dose: 5 mg Senna (Senna) 8.6 mg PO BID PRN PRN Reason: Constipation Sodium Chloride (Saline Flush) 10 ml FLUSH ASDIRECTED PRN PRN Reason: Keep Vein Open Discontinued Medications Bupivacaine HCl (Marcaine 0.25%) Confirm Administered Dose 30 ml .ROUTE .STK- MED ONE Stop: 06/08/17 06:12 Last Admin: 06/08/17 08:51 Dose: 30 ml Cefazolin Sodium (Ancef) Confirm Administered Dose 2 gm .ROUTE .STK-MED ONE Stop: 06/08/17 06:11 Last Admin: 06/08/17 08:45 Dose: 2 gm Cefazolin Sodium (Ancef) Confirm Administered Dose 2 gm .ROUTE .STK-MED ONE Stop: 06/08/17 07:23 Cefazolin Sodium (Ancef) Confirm Administered Dose 1 gm .ROUTE .STK-MED ONE Stop: 06/08/17 07:23 Morphine Sulfate 8 mg/Epinephrine HCl 0.3 mg/Cefuroxime Sodium 750 mg/Ketorolac Tromethamine 30 mg/Sodium Chloride 27.9 ml 0 mg .XX ONETIME ONE Stop: 06/08/17 07:46 Last Admin: 06/08/17 08:50 Dose: 788.3 mg Diphenhydramine HCl (Benadryl) 25 mg IVPUSH Q4H PRN PRN Reason: Nausea Diphenhydramine HCl (Benadryl) 25 mg IVPUSH Q6H PRN PRN Reason: Itching Stop: 06/08/17 18:00 Fentanyl (Sublimaze) Confirm Administered Dose 100 mcg .ROUTE .STK-MED ONE Stop: 06/08/17 07:22 Fentanyl (Sublimaze) 50 mcg IVPUSH Q5M PRN PRN Reason: PAIN Stop: 06/08/17 18:00 Fish Oil (Fish Oil) 1 gm PO DAILY [facility] Lactated Ringer's (Ringers, Lactated) 1,000 mls @ 125 mls/hr IV ASDIRECTED [facility] Cefazolin Sodium/Dextrose 2 gm (/ Premix) 50 mls @ 100 mls/hr IV Q8H [facility] Stop: 06/08/17 23:14 Lidocaine HCl (Xylocaine-Mpf 1%) Confirm Administered Dose 4 mls @ as directed .ROUTE .STK-MED ONE Stop: 06/08/17 07:23 Lactated Ringer's (Ringers, Lactated) Confirm Administered Dose 1,000 mls @ as directed .ROUTE .STK-MED ONE Stop: 06/08/17 08:20 Cefazolin Sodium/Dextrose 2 gm (/ Premix) 50 mls @ 100 mls/hr IV Q8H [facility] Stop: 06/09/17 07:59 Last Admin: 06/09/17 06:31 Dose: 100 mls/hr Cefazolin Sodium/Dextrose 1 gm (/ Premix) 50 mls @ 100 mls/hr IV Q8H [facility] Stop: 06/09/17 07:59 Last Admin: 06/09/17 06:31 Dose: 100 mls/hr Lactated Ringer's (Ringers, Lactated) Confirm Administered Dose 1,000 mls @ as directed .ROUTE .STK-MED ONE Stop: 06/08/17 09:23 Influenza Virus Vaccine (Fluzone High-Dose 18) 1 mcg IM ONETIME ONE Stop: 06/09/17 11:39 Iodine (Iodine 2% Mild Tincture) Confirm Administered Dose 30 ml .ROUTE .STK- MED ONE Stop: 06/08/17 06:12 Last Admin: 06/08/17 08:44 Dose: 18 ml Labetalol HCl (Normodyne) Confirm Administered Dose 100 mg .ROUTE .STK-MED ONE Stop: 06/08/17 08:00 Lidocaine/Sodium Bicarbonate (Buffered Lidocaine 1% In Ns 8.4%) 0.25 ml IV ONETIME PRN PRN Reason: Prior to IV Start Midazolam HCl (Versed 1 Mg/Ml) Confirm Administered Dose 2 mg .ROUTE .STK-MED ONE Stop: 06/08/17 07:23 Morphine Sulfate (Duramorph Pf) Confirm Administered Dose 10 mg .ROUTE .STK-MED ONE Stop: 06/08/17 07:38 Non-Formulary Medication (Lisinopril/Hydrochlorothiazide [Lisinopril-Hctz 20-25 Mg Tab]) 1 tab PO DAILY [facility] Non-Formulary Medication (Rivaroxaban [Xarelto]) 20 mg PO DAILY [facility] Ondansetron HCl (Zofran) Confirm Administered Dose 4 mg .ROUTE .STK-MED ONE Stop: 06/08/17 07:22 Phenylephrine HCl (Phenylephrine In Ns 100 Mcg/Ml) Confirm Administered Dose 1 mg .ROUTE .STK-MED ONE Stop: 06/08/17 08:09 Propofol (Diprivan 20 Ml) Confirm Administered Dose 200 mg .ROUTE .STK-MED ONE Stop: 06/08/17 07:22 Propofol (Diprivan 20 Ml) Confirm Administered Dose 200 mg .ROUTE .STK-MED ONE Stop: 06/08/17 08:14 Propofol (Diprivan 20 Ml) Confirm Administered Dose 200 mg .ROUTE .STK-MED ONE Stop: 06/08/17 08:49 Propofol (Diprivan 20 Ml) Confirm Administered Dose 200 mg .ROUTE .STK-MED ONE Stop: 06/08/17 09:22 Tranexamic Acid (Cyklokapron) Confirm Administered Dose 1,000 mg .ROUTE .STK- MED ONE Stop: 06/08/17 06:11 Last Admin: 06/08/17 08:53 Dose: 1,000 mg Vancomycin HCl (Vancomycin) Confirm Administered Dose 1 gm .ROUTE .STK-MED ONE Stop: 06/08/17 06:11 Last Admin: 06/08/17 08:53 Dose: 1 gm *Q Meaningful Use (DIS) - VTE *Q VTE Criteria *Q: - Stroke *Q Stroke Criteria *Q: - AMI *Q AMI Criteria *Q:
[2017-06-09] MEDS ORDERED: oxyCODONE 5 MG Tab PO ONE (15:32)
--- NOTE | 2017-06-20 10:51 | PCM.OPNOTE ---
- General Post-Op/Procedure Note Date of Surgery/Procedure: 06/08/17 Operative Procedure(s): left total hip arthroplasty Pre Op Diagnosis: left hip osteoarthrosis Post-Op Diagnosis: Same Anesthesia Technique: Local, MAC, Spinal Primary Surgeon: Mello Velez Anesthesia Provider: Alonzo Ornelas Food Dehydrator Operator: Luh Richards Food Dehydrator Operator: Mariza Wade EBDimas in mLs: 350 Complications: None Condition: Good
--- NOTE | 2017-06-20 11:28 | OR ---
DATE OF OPERATION: 06/08/2017 SURGEON: Mello Velez MD OPERATION PERFORMED: Left total hip arthroplasty. PREOPERATIVE DIAGNOSIS: Left hip osteoarthrosis. POSTOPERATIVE DIAGNOSIS: Left hip osteoarthrosis. ANESTHESIA TECHNIQUE: Local MAC with spinal. ANESTHESIA PROVIDER: Alonzo Ornelas CRNA. ASSISTANTS: Luh Richards PA-C and Mariza Wade LPN. ESTIMATED BLOOD LOSS: 350 mL. COMPLICATIONS: None. CONDITION: Stable. IMPLANTS: 1. Christina size 60 solid Tritanium acetabular cup. 2. [place] size 5 Accolade II stem. 3. 36+ 7 mm Biolox ceramic femoral head. DESCRIPTION OF PROCEDURE: The patient was identified in the preop holding area. Proper site was marked and identified by the surgeon. The patient was taken back to the operating theater where after adequate anesthesia, the patient was placed in the right lateral decubitus position. Axillary wedge was placed. All bony prominences were well padded. Pegs were then placed and well padded. The patient's left hip was then sterilely prepped and draped in the usual sterile fashion. OR time- out was performed. The patient received 2 g of IV Ancef. Standard posterior incision was made, centered over the greater trochanter. This was taken down to the IT band and gluteal fascia, which was incised along the incisional length. Charnley retractor was then placed. Short external rotators were identified along with the piriformis tendon and this was taken down to the level of the lesser trochanter with the capsulotomy performed as well. The hip was then dislocated. Neck cut guide was then placed. The neck cut was then completed. The femoral head was sized on the back table. Attention was turned to the acetabulum. Posterior and anterior acetabular retractors were then placed. All pulvinar was removed along with any excess labrum. Starting with a size 52 reamer, I was able to ream up to a 60 which was found to have adequate reaming. At this time the trial was placed. It was found to have adequate fixation. A 60 mm Tritanium acetabular cup was then impacted in place roughly 45 degrees of abduction and 20-30 degrees of anteversion. The elevated liner was then impacted into place for 36 mm head. Attention was turned to the femur. Femoral elevator was placed. Box chisel was used out laterally. Starter awl was placed down the canal starting with the 0 broach up to a size 5 which was found to be rotation and vertically stable. A 127-degree neck angle was then placed and a 36+ 0 head was trialed. It was found to be short on leg lengths. So at this time a 36+ 7 was trialed and was found to have adequate bahai of leg lengths and was stable throughout range of motion. At this time, the trial implants were removed and the size 5 Accolade II stem was then impacted into place. A 36+ 7 head was then impacted into place. Hip was then relocated. 1 L of dilute Betadine solution was irrigated through the hip along with 3 L of pulse lavage irrigation with Ancef. Periarticular injection was then also completed. 2 #5 Ethibond suture was used for closure of the posterior capsule and short external rotators. Topical vancomycin powder as well as topical tranexamic acid was then placed. A #2 barbed suture was used for closure of IT band and gluteal fascia, 2-0 Vicryl was used subcutaneously and Prineo was used for the skin. The patient had a sterile soft dressing applied. He tolerated the procedure well and sent to PACU in stable condition. ANESTHESIA: MMODAL /[id number]
== END 2017-06-09 17:10 | disposition home or self-care (01) | DRG 470 ==
LOC: JD.MS 06:07
PROVIDERS: ADMIT Orthopaedic Surgery; ATTEND Orthopaedic Surgery
PROC: 0SRB019 Replacement of Left Hip Joint with Metal Synthetic Substitute, Cemented, Open Approach (ICD-10-PCS; principal; 2017-06-08)
DX: M16.12 Unilateral primary osteoarthritis, left hip (principal); E66.3 Overweight; Z68.33 Body mass index [BMI] 33.0-33.9, adult; I10 Essential (primary) hypertension; I48.2 Chronic atrial fibrillation; E78.5 Hyperlipidemia, unspecified; H90.2 Conductive hearing loss, unspecified; Z79.01 Long term (current) use of anticoagulants; Z79.899 Other long term (current) drug therapy; I25.10 Atherosclerotic heart disease of native coronary artery without angina pectoris; K21.9 Gastro-esophageal reflux disease without esophagitis; Z23 Encounter for immunization
CPT/HCPCS: 01214; 36415; 73501-26-LT; 73501-LT; 80053; 85027; 85610; 85730; 86850; 86900; 86901; 90662; 94762; 97110-GP; 97116-GP; 97161-GP; 97162-GP; 97166-GO; 97530-GO; 97530-GP; 97535-GO; A9270-GY; C1776; G0008; J0171; J0690; J0697; J1885; J2250; J2270; J2405; J2704; J3010; J3370; J3490; J7120

== ENCOUNTER 2020-09-08 09:38 | Day surgery (SDC) | payer MEDICARE, BC ==
[~2020-09-08 09:38] MED LIST changes: +Cefuroxime 10 MG/ML SYRINGE EYERT SCH; -Lactated Ringers 1,000 ML IV SCH; +Lidocaine 1% PF 2 ML SDV INJECT SCH; -Lidocaine 1%/Sod Bicarbonate in NS 8.4% 1 ML Syringe IV PRN; +Pilocarpine 4% Ophth Soln 15 ML Bot EYERT SCH; -Sodium Chloride 0.9% 10 ML Syringe FLUSH PRN
[2020-09-08] MEDS: Polymyxin B/Trimethoprim 10 ML Bottle EYERT SCH ×3 (10:06→11:44)
[2020-09-08] MEDS: Brimonidine 0.2% Ophth Soln 5 ML Bottle EYERT SCH ×3 (10:14→11:44)
[2020-09-08] MEDS: Phenylephrine 2.5% Ophth Soln 2 ML Bot EYERT SCH ×5 (10:22→11:21)
[2020-09-08] MEDS: Tropicamide 1% Ophth Soln 15 ML Bottle EYERT SCH ×4 (10:26→10:59)
--- NOTE | 2020-09-08 10:34 | PCM.PREANE ---
Preanesthetic Assessment - Procedure Proposed Procedure: Right eye cataract extraction - Anesthesia/Transfusion/Family Hx Anesthesia History: Prior Anesthesia Without Reaction Family History of Anesthesia Reaction: No Transfusion History: No Prior Transfusion(s) - Review of Systems General: No Symptoms Pulmonary: No Symptoms Cardiovascular: Other (Atrial fibrillation, hypertnesion) Gastrointestinal: No Symptoms Neurological: No Symptoms Other: Reports: Easy Bleeding, Easy Bruising (Anticoagulated on xarelto last dose 0700) - Physical Assessment NPO Status Date: 09/07/20 NPO Status Time: 20:00 Vital Signs: 73 96% 141/97 16 Height: 1.88 m Weight: 124.738 kg ASA Class: 3 Mental Status: Alert & Oriented x3 Airway Class: Mallampati = 2 Dentition: Reports: Normal Dentition Thyro-Mental Finger Breadths: 2 Mouth Opening Finger Breadths: 3 ROM/Head Extension: Full Lungs: Clear to Auscultation, Normal Respiratory Effort Cardiovascular: Irregular Rhythm - Allergies Allergies/Adverse Reactions: Allergies Allergy/AdvReac Type Severity Reaction Status Date / Time No Known Allergies Allergy Verified 09/07/20 14:14 - Anesthesia Plan Pre-Op Medication Ordered: None - Acknowledgements Anesthesia Type Planned: MAC Pt an Appropriate Candidate for the Planned Anesthesia: Yes Alternatives and Risks of Anesthesia Discussed w Pt/Guardian: Yes Pt/Guardian Understands and Agrees with Anesthesia Plan: Yes PreAnesthesia Questionnaire HEENT History: Reports: Hard of Hearing, Impaired Vision Cardiovascular History: Reports: Afib, CAD, High Cholesterol, Other (See Below) Other Cardiovascular History: heart catheterization, abnormality of thoracic aorta Respiratory History: Reports: None Gastrointestinal History: Reports: None Genitourinary History: Reports: None GEOTHERMAL INSTALLER History: Reports: None Musculoskeletal History: Reports: Osteoarthritis, Other (See Below) Other Musculoskeletal History: hand weakness Neurological History: Reports: None Psychiatric History: Reports: None Endocrine/Metabolic History: Reports: None Hematologic History: Reports: None Immunologic History: Reports: None Oncologic (Cancer) History: Reports: None Dermatologic History: Reports: Other (See Below) Other Dermatologic History: foreign body to left hand, actinic keratosis - Infectious Disease History Infectious Disease History: Reports: Chicken Pox, Measles, Other (See Below) Other Infectious Disease History: as a child - Past Surgical History Head Surgeries/Procedures: Reports: None HEENT Surgical History: Reports: None Cardiovascular Surgical History: Reports: None Respiratory Surgical History: Reports: None GI Surgical History: Reports: None Male Surgical History: Reports: None Endocrine Surgical History: Reports: None Neurological Surgical History: Reports: None Musculoskeletal Surgical History: Reports: None Oncologic Surgical History: Reports: None Dermatological Surgical History: Reports: None - HOME MEDS Home Medications: Home Meds Lisinopril/Hydrochlorothiazide [Lisinopril-Hctz 20-25 mg Tab] 1 tab PO DAILY 06/07/17 [History] Metoprolol Succinate [Toprol XL] 50 mg PO BID 06/07/17 [History] Potassium Chloride 10 meq PO DAILY 06/07/17 [History] Rosuvastatin [Crestor] 5 mg PO DAILY 06/07/17 [History] Ubidecarenone [Coq-10] 100 mg PO DAILY 06/07/17 [History] - CURRENT (IN HOUSE) MEDS Current Meds: Current Medications Brimonidine Tartrate (Alphagan 0.2% Ophth Soln) 0 ml EYERT ASDIRECTED GLENDA Stop: 09/08/20 18:00 Last Admin: 09/08/20 10:14 Dose: 1 drop Documented by: Cefuroxime Sodium (Zinacef) 0 mg EYERT ASDIRECTED GLENDA Stop: 09/08/20 18:00 Lidocaine HCl (Xylocaine-Mpf 1%) 0 ml INJECT ASDIRECTED GLENDA Stop: 09/08/20 18:00 Phenylephrine HCl (Rahul-Synephrine 2.5% Ophth Soln) 0 ml EYERT ASDIRECTED GLENDA Stop: 09/08/20 18:00 Last Admin: 09/08/20 10:22 Dose: 1 drop Documented by: Pilocarpine HCl (Pilocar 4% Ophth Soln) 0 ml EYERT ASDIRECTED GLENDA Stop: 09/08/20 18:00 Polymyxin/Trimethoprim Sulfate (Polytrim Ophth Soln) 0 ml EYERT ASDIRECTED GLENDA Stop: 09/08/20 18:00 Last Admin: 09/08/20 10:06 Dose: 1 drop Documented by: Tetracaine HCl (Tetracaine 0.5% Steri-Unit Taina) 0 ml EYEBOTH ASDIRECTED GLENDA Stop: 09/08/20 18:00 Tropicamide (Mydriacyl 1% Oph Soln) 0 ml EYERT ASDIRECTED GLENDA Stop: 09/08/20 18:00
[2020-09-08] MEDS: Tetracaine HCl/PF 0.5% 4 ML Bottle EYEBOTH SCH ×2 (11:02→11:32)
--- NOTE | 2020-09-08 11:46 | PCM48HPAN ---
Post Anesthesia Note - EVALUATION WITHIN 48HRS OF ANESTHETIC Vital Signs in Normal Range: Yes Patient Participated in Evaluation: Yes Respiratory Function Stable: Yes Airway Patent: Yes Cardiovascular Function Stable: Yes Hydration Status Stable: Yes Pain Control Satisfactory: Yes Nausea and Vomiting Control Satisfactory: Yes Mental Status Recovered: Yes Vital Signs: Last Vital Signs Temp 36.2 C 09/08/20 10:00 Pulse 73 09/08/20 10:00 Resp 16 09/08/20 10:00 BP 149/106 H 09/08/20 11:00 Pulse Ox 96 09/08/20 10:00
== END 2020-09-08 11:58 | disposition home or self-care (01) ==
LOC: JD.SDS 09:38
PROVIDERS: ATTEND Ophthalmology
DX: H25.813 Combined forms of age-related cataract, bilateral (principal); H16.223 Keratoconjunctivitis sicca, not specified as Sjogren's, bilateral; H40.003 Preglaucoma, unspecified, bilateral; H16.103 Unspecified superficial keratitis, bilateral; H02.831 Dermatochalasis of right upper eyelid; H02.834 Dermatochalasis of left upper eyelid; I10 Essential (primary) hypertension; I48.91 Unspecified atrial fibrillation; I25.10 Atherosclerotic heart disease of native coronary artery without angina pectoris; E78.00 Pure hypercholesterolemia, unspecified; M19.90 Unspecified osteoarthritis, unspecified site; Z79.01 Long term (current) use of anticoagulants; Z79.899 Other long term (current) drug therapy; Z98.890 Other specified postprocedural states
CPT/HCPCS: 66984; J0697; C1780